=== PATIENT | female | born 1955 | race Caucasian/White ===

== ENCOUNTER → 2020-03-23 | Outpatient (CLI) | payer BC ==
[~2020-03-23] MED LIST: DAILY VITAMIN1 EAC3 PO; TYLENOL325 MG PO
[2020-03-23 15:35] LABS: BASOPHILS # (AUTO) 0.1 (0.0-0.1); BASOPHILS % 1.4 % (0.0-1.0); EOSINOPHILS # (AUTO) 0.2 (0.0-0.4); EOSINOPHILS % 2.6 % (0.0-6.0); HEMATOCRIT 42.2 % (34.2-44.1); HEMOGLOBIN 13.6 g/dL (12.0-16.0); LYMPHOCYTES # (AUTO) 2.1 (1.0-3.2); LYMPHOCYTES % 27.2 % (18.0-39.1); MEAN CORPUSCULAR HEMOGLOBIN 33.3 pg (28-32); MEAN CORPUSCULAR HGB CONC 32.2 g/dL (31-35); MEAN CORPUSCULAR VOLUME 103.4 fL (81-99); MONOCYTES # (AUTO) 0.5 (0.2-0.8); MONOCYTES % 6.6 % (4.4-11.3); NEUTROPHILS # (AUTO) 4.8 (2.1-6.9); NEUTROPHILS % 61.9 % (38.7-80.0); PLATELET COUNT 357 x10e3/uL (140-360); RED BLOOD COUNT 4.08 x10e6/uL (3.6-5.1); RED CELL DISTRIBUTION WIDTH 12.9 % (11.7-14.4)
[2020-03-23 16:04] LABS: ALBUMIN 3.8 g/dL (3.5-5.0); ALBUMIN/GLOBULIN RATIO 1.1 (0.8-2.0); ANION GAP 14.8 mmol/L (8-16); CALCIUM 9.6 mg/dL (8.4-10.2); CREATININE, SERUM 1.36 mg/dL (0.57-1.11); POTASSIUM 4.8 mmol/L (3.5-5.1)
== END ==
LOC: RAD 14:46
PROVIDERS: ATTEND Family Medicine
DX: R07.89 Other chest pain (principal); R06.02 Shortness of breath
CPT/HCPCS: 36415; 71046; 80053; 85025

== ENCOUNTER 2020-10-29 08:33 | Inpatient (IN) | payer BC ==
[~2020-10-29] VITALS: Ht 165.1 cm; Wt 74.8 kg
[2020-10-29] MEDS ORDERED: ONDANSETRON HCL INJ 2MG/ML 2ML 2 MG/ML VIAL IV STA (08:52)
[2020-10-29] MEDS ORDERED: MORPHINE SULFATE INJ 2 MG/ML SYR IV STA (08:52)
[2020-10-29] MEDS ORDERED: NITROGLYCERIN 2% OINT 1 GM PKT TOP ONE ×2 (09:00→11:30)
[2020-10-29 09:06] LABS: BASOPHILS # (AUTO) 0.1 (0.0-0.1); BASOPHILS % 1.3 % (0.0-1.0); EOSINOPHILS # (AUTO) 0.1 (0.0-0.4); EOSINOPHILS % 1.4 % (0.0-6.0); HEMATOCRIT 42.8 % (34.2-44.1); HEMOGLOBIN 13.5 g/dL (12.0-16.0); LYMPHOCYTES # (AUTO) 1.6 (1.0-3.2); LYMPHOCYTES % 15.8 % (18.0-39.1); MEAN CORPUSCULAR HEMOGLOBIN 32.7 pg (28-32); MEAN CORPUSCULAR HGB CONC 31.5 g/dL (31-35); MEAN CORPUSCULAR VOLUME 103.6 fL (81-99); MONOCYTES # (AUTO) 0.5 (0.2-0.8); MONOCYTES % 5.3 % (4.4-11.3); NEUTROPHILS # (AUTO) 7.7 (2.1-6.9); NEUTROPHILS % 75.9 % (38.7-80.0); PLATELET COUNT 387 x10e3/uL (140-360); RED BLOOD COUNT 4.13 x10e6/uL (3.6-5.1); RED CELL DISTRIBUTION WIDTH 13.9 % (11.7-14.4)
[2020-10-29 09:11] LABS: PARTIAL THROMBOPLASTIN TIME 30.9 seconds (23.8-35.5); PROTHROMBIN TIME 13.8 seconds (11.9-14.5)
[2020-10-29 09:20] LABS: ALBUMIN 3.8 g/dL (3.5-5.0); ANION GAP 17.5 mmol/L (8-16); CALCIUM 9.5 mg/dL (8.4-10.2); CREATININE, SERUM 1.62 mg/dL (0.57-1.11); MAGNESIUM 2.1 MG/DL (1.3-2.1); POTASSIUM 4.5 mmol/L (3.5-5.1)
[2020-10-29 09:26] LABS: CREATINE KINASE MB 4.9 ng/mL (0-5.0)
[2020-10-29] MEDS ORDERED: FUROSEMIDE INJ 10 MG/ML 4 ML VIAL IV ONE (10:15)
[2020-10-29] MEDS ORDERED: ONDANSETRON HCL INJ 2MG/ML 2ML 2 MG/ML VIAL IV PRN (10:15)
[2020-10-29] MEDS ORDERED: MORPHINE SULFATE INJ 2 MG/ML SYR IV PRN (10:15)
[2020-10-29] MEDS ORDERED: PROMETHAZINE HCL (IM) 25 MG/ML VIAL IM PRN (11:00)
[2020-10-29] MEDS ORDERED: HYDRALAZINE HCL 20 MG/ML VIAL IV PRN (11:00)
[2020-10-29] MEDS ORDERED: ASPIRIN 81 MG CHEW TAB PO ONE (11:00)
[2020-10-29] MEDS ORDERED: METOPROLOL SUCCINATE 50 MG TAB XL PO ONE (11:00)
[2020-10-29] MEDS: VALSARTAN 160 MG TAB PO SCH (11:30)
[2020-10-29] MEDS ORDERED: SPIRONOLACTONE 25 MG TAB PO ONE (11:30)
[2020-10-29] MEDS: NITROGLYCERIN 2% OINT 1 GM PKT TOP SCH ×2 (12:00→17:33)
[2020-10-29] MEDS: FAMOTIDINE 20 MG TAB PO SCH ×2 (12:18→22:27)
[2020-10-29] MEDS: COLCHICINE 0.6 MG TAB PO SCH ×2 (12:18→17:32)
[2020-10-29 14:28] VITALS: BP 153/97
[2020-10-29 15:36] VITALS: BP 153/97
[2020-10-29] MEDS ORDERED: ENTRESTO 49 MG1 EACH PO (16:40)
[2020-10-29 16:48] VITALS: BP 148/96
[2020-10-29 16:54] LABS: CREATINE KINASE MB 4.4 ng/mL (0-5.0)
[2020-10-29 20:00] VITALS: BP 121/91
[2020-10-29] MEDS ORDERED: FAMOTIDINE 20 MG/2 ML VIAL IV SCH (21:00)
[2020-10-30] VITALS (9 sets, daily range): BP systolic 145–169; BP diastolic 74–118
[2020-10-30] MEDS: NITROGLYCERIN 2% OINT 1 GM PKT TOP SCH ×5 (00:39→23:56)
[2020-10-30 01:57] LABS: CREATINE KINASE MB 3.6 ng/mL (0-5.0)
[2020-10-30 02:16] LABS: ANION GAP 17.2 mmol/L (8-16); CALCIUM 8.6 mg/dL (8.4-10.2); CREATININE, SERUM 1.7 mg/dL (0.57-1.11); POTASSIUM 4.2 mmol/L (3.5-5.1)
[2020-10-30 04:55] LABS: BASOPHILS # (AUTO) 0.1 (0.0-0.1); BASOPHILS % 1.3 % (0.0-1.0); EOSINOPHILS # (AUTO) 0.2 (0.0-0.4); EOSINOPHILS % 2.6 % (0.0-6.0); HEMATOCRIT 34.9 % (34.2-44.1); HEMOGLOBIN 11.3 g/dL (12.0-16.0); LYMPHOCYTES # (AUTO) 1.9 (1.0-3.2); MEAN CORPUSCULAR HEMOGLOBIN 33.1 pg (28-32); MEAN CORPUSCULAR HGB CONC 32.4 g/dL (31-35); MEAN CORPUSCULAR VOLUME 102.3 fL (81-99); MONOCYTES # (AUTO) 0.7 (0.2-0.8); MONOCYTES % 7.7 % (4.4-11.3); NEUTROPHILS # (AUTO) 5.5 (2.1-6.9); NEUTROPHILS % 64.9 % (38.7-80.0); PLATELET COUNT 314 x10e3/uL (140-360); RED BLOOD COUNT 3.41 x10e6/uL (3.6-5.1); RED CELL DISTRIBUTION WIDTH 13.7 % (11.7-14.4)
[2020-10-30 05:24] LABS: ALBUMIN 3.1 g/dL (3.5-5.0); ALBUMIN/GLOBULIN RATIO 1.1 (0.8-2.0); CALCIUM 8.5 mg/dL (8.4-10.2); CHOL/HDL RATIO 4.9 (3.0-3.6); CREATININE, SERUM 1.63 mg/dL (0.57-1.11)
[2020-10-30 05:57] LABS: CREATINE KINASE MB 3.2 ng/mL (0-5.0)
[2020-10-30] MEDS: ASPIRIN 81 MG ENTERIC COATED PO SCH (09:59)
[2020-10-30] MEDS: VALSARTAN 160 MG TAB PO SCH (09:59)
[2020-10-30] MEDS: METOPROLOL SUCCINATE 50 MG TAB XL PO SCH (09:59)
[2020-10-30] MEDS: SPIRONOLACTONE 25 MG TAB PO SCH (09:59)
[2020-10-30] MEDS: COLCHICINE 0.6 MG TAB PO SCH ×2 (09:59→17:00)
[2020-10-30] MEDS: FAMOTIDINE 20 MG TAB PO SCH ×2 (11:00→23:56)
[2020-10-31] VITALS (7 sets, daily range): BP systolic 125–177; BP diastolic 55–113
[2020-10-31] MEDS: NITROGLYCERIN 2% OINT 1 GM PKT TOP SCH ×3 (05:57→17:58)
[2020-10-31] MEDS: COLCHICINE 0.6 MG TAB PO SCH ×2 (08:38→17:00)
[2020-10-31] MEDS: SPIRONOLACTONE 25 MG TAB PO SCH (08:38)
[2020-10-31] MEDS: ASPIRIN 81 MG ENTERIC COATED PO SCH (08:38)
[2020-10-31] MEDS: VALSARTAN 160 MG TAB PO SCH (08:40)
[2020-10-31] MEDS: METOPROLOL SUCCINATE 50 MG TAB XL PO SCH ×2 (08:40→18:00)
[2020-10-31] MEDS: FAMOTIDINE 20 MG TAB PO SCH (11:00)
[2020-10-31] MEDS: SACUBITRIL/VALSARTAN 1 EACH TABLET PO SCH (17:30)
[2020-10-31] MEDS: FUROSEMIDE INJ 10 MG/ML 4 ML VIAL IV SCH (21:00)
[2020-11-01] VITALS (10 sets, daily range): BP systolic 152–171; BP diastolic 93–104
[2020-11-01] MEDS: FAMOTIDINE 20 MG TAB PO SCH ×3 (00:25→23:00)
[2020-11-01] MEDS: NITROGLYCERIN 2% OINT 1 GM PKT TOP SCH ×4 (00:25→17:18)
[2020-11-01] MEDS: ASPIRIN 81 MG ENTERIC COATED PO SCH (08:27)
[2020-11-01] MEDS: FUROSEMIDE INJ 10 MG/ML 4 ML VIAL IV SCH ×2 (08:27→22:30)
[2020-11-01] MEDS: SPIRONOLACTONE 25 MG TAB PO SCH (08:27)
[2020-11-01] MEDS: COLCHICINE 0.6 MG TAB PO SCH ×2 (08:28→18:08)
[2020-11-01] MEDS: SACUBITRIL/VALSARTAN 1 EACH TABLET PO SCH ×2 (08:28→18:08)
[2020-11-01] MEDS: METOPROLOL SUCCINATE 50 MG TAB XL PO SCH (08:28)
[2020-11-01] MEDS ORDERED: MIDAZOLAM HCL 2 MG/2 ML VIAL ONE (14:20)
[2020-11-01] MEDS ORDERED: SODIUM CHLORIDE 0.9% 500ML 500 ML ONE (14:21)
[2020-11-01] MEDS ORDERED: LIDOCAINE HCL 2% LOCAL 20 ML VIAL ONE (14:21)
[2020-11-01] MEDS ORDERED: IOPAMIDOL 370 MG/ML 200 ML INFUS..BTL INJ ONE (14:21)
[2020-11-01] MEDS ORDERED: FENTANYL CITRATE/PF 100MCG/2 ML INJ ONE (14:21)
[2020-11-01] MEDS ORDERED: GENTAMICIN SULFATE 40 MG/ML 2 ML VIAL ONE (14:21)
[2020-11-01] MEDS ORDERED: SODIUM CHLORIDE 0.9% 1000ML 2,000 ML ONE (14:22)
[2020-11-01] MEDS ORDERED: SODIUM CHLORIDE 0.9% 250ML 250 ML ONE (15:21)
[2020-11-01] MEDS ORDERED: Vancomycin IV 1 GM VIAL ONE (15:21)
[2020-11-01] MEDS ORDERED: CEFAZOLIN SOD 2 GM/NS 50ML 50 ML IV ONE (15:21)
[2020-11-01] MEDS: MORPHINE SULFATE INJ 2 MG/ML SYR IV PRN (21:20)
[2020-11-01] MEDS: ONDANSETRON HCL INJ 2MG/ML 2ML 2 MG/ML VIAL IV PRN (21:20)
[2020-11-02] VITALS (10 sets, daily range): BP systolic 127–151; BP diastolic 62–98
[2020-11-02] MEDS: NITROGLYCERIN 2% OINT 1 GM PKT TOP SCH ×4 (04:49→17:14)
[2020-11-02] MEDS: FUROSEMIDE INJ 10 MG/ML 4 ML VIAL IV SCH ×2 (08:15→21:29)
[2020-11-02] MEDS: COLCHICINE 0.6 MG TAB PO SCH ×2 (08:16→17:14)
[2020-11-02] MEDS: ASPIRIN 81 MG ENTERIC COATED PO SCH (08:16)
[2020-11-02] MEDS: SACUBITRIL/VALSARTAN 1 EACH TABLET PO SCH ×2 (08:16→17:14)
[2020-11-02] MEDS: METOPROLOL SUCCINATE 50 MG TAB XL PO SCH (08:17)
[2020-11-02] MEDS: SPIRONOLACTONE 25 MG TAB PO SCH (08:17)
[2020-11-02] MEDS: FAMOTIDINE 20 MG TAB PO SCH ×2 (11:17→23:30)
[2020-11-02] MEDS: ONDANSETRON HCL INJ 2MG/ML 2ML 2 MG/ML VIAL IV PRN (21:29)
[2020-11-02] MEDS: MORPHINE SULFATE INJ 2 MG/ML SYR IV PRN (21:29)
[2020-11-03] VITALS: BP 144/95
[2020-11-03 04:00] VITALS: BP 151/84
[2020-11-03] MEDS: NITROGLYCERIN 2% OINT 1 GM PKT TOP SCH ×3 (05:47→11:20)
[2020-11-03 08:10] VITALS: BP 132/85
[2020-11-03] MEDS: FUROSEMIDE INJ 10 MG/ML 4 ML VIAL IV SCH (08:25)
[2020-11-03] MEDS: ASPIRIN 81 MG ENTERIC COATED PO SCH (08:25)
[2020-11-03] MEDS: COLCHICINE 0.6 MG TAB PO SCH (08:25)
[2020-11-03] MEDS: SPIRONOLACTONE 25 MG TAB PO SCH (08:25)
[2020-11-03] MEDS: METOPROLOL SUCCINATE 50 MG TAB XL PO SCH (08:26)
[2020-11-03] MEDS: SACUBITRIL/VALSARTAN 1 EACH TABLET PO SCH (08:26)
[2020-11-03 10:30] VITALS: BP 132/85
[2020-11-03 11:43] VITALS: BP 145/86
== END 2020-11-03 12:44 | disposition home or self-care (01) | DRG 227 ==
LOC: ER 09:05 → ERHOLD 10:09 → MED/SURG2 13:59
PROVIDERS: ADMIT Internal Medicine Interventional Cardiology; ATTEND Internal Medicine Interventional Cardiology
PROC: 0JH608Z Insertion of Defibrillator Generator into Chest Subcutaneous Tissue and Fascia, Open Approach (ICD-10-PCS; principal; 2020-11-01)
PROC: 02HK3KZ Insertion of Defibrillator Lead into Right Ventricle, Percutaneous Approach (ICD-10-PCS; 2020-11-01)
DX: I11.0 Hypertensive heart disease with heart failure (principal); I16.1 Hypertensive emergency; I50.43 Acute on chronic combined systolic (congestive) and diastolic (congestive) heart failure; E78.5 Hyperlipidemia, unspecified; Z95.5 Presence of coronary angioplasty implant and graft; Z91.120 Patient's intentional underdosing of medication regimen due to financial hardship; Z85.3 Personal history of malignant neoplasm of breast
CPT/HCPCS: 33249; 36415; 71045; 80048; 80053; 80061; 82550; 82553; 83735; 83880; 84484; 85025; 85610; 85730; 93005; 93306; 99152; 99153; 99251; 99284; C1721; C1777; J0360; J0690; J1580; J1940; J2001; J2250; J2270; J2405; J3010; J3370; J7030; J7040; J7050; Q9967

== ENCOUNTER 2020-11-25 08:47 | Emergency (ER) | payer BC ==
[~2020-11-25] VITALS: Ht 165.1 cm; Wt 74.8 kg
[~2020-11-25 08:47] MED LIST changes: +ENTRESTO 49 MG1 EACH PO
[2020-11-25] MEDS ORDERED: ONDANSETRON HCL INJ 2MG/ML 2ML 2 MG/ML VIAL IV STA (09:06)
[2020-11-25 09:16] LABS: BASOPHILS # (AUTO) 0.1 (0.0-0.1); BASOPHILS % 1.6 % (0.0-1.0); EOSINOPHILS # (AUTO) 0.4 (0.0-0.4); EOSINOPHILS % 4.8 % (0.0-6.0); HEMATOCRIT 41.9 % (34.2-44.1); HEMOGLOBIN 13.1 g/dL (12.0-16.0); LYMPHOCYTES # (AUTO) 1.8 (1.0-3.2); LYMPHOCYTES % 21.1 % (18.0-39.1); MEAN CORPUSCULAR HEMOGLOBIN 32.2 pg (28-32); MEAN CORPUSCULAR HGB CONC 31.3 g/dL (31-35); MEAN CORPUSCULAR VOLUME 102.9 fL (81-99); MONOCYTES # (AUTO) 0.5 (0.2-0.8); NEUTROPHILS # (AUTO) 5.5 (2.1-6.9); PLATELET COUNT 362 x10e3/uL (140-360); RED BLOOD COUNT 4.07 x10e6/uL (3.6-5.1); RED CELL DISTRIBUTION WIDTH 13.8 % (11.7-14.4)
[2020-11-25 09:25] LABS: INR 1.13; PROTHROMBIN TIME 14.7 seconds (11.9-14.5)
[2020-11-25] MEDS ORDERED: HYDROCODONE/APAP 7.5MG-325MG 1 EA TAB PO ONE (09:30)
[2020-11-25] MEDS ORDERED: NITROGLYCERIN 2% OINT 1 GM PKT TOP ONE (09:30)
[2020-11-25 09:34] LABS: ALBUMIN 3.3 g/dL (3.5-5.0); ALBUMIN/GLOBULIN RATIO 0.8 (0.8-2.0); ANION GAP 18.3 mmol/L (8-16); CALCIUM 9.4 mg/dL (8.4-10.2); CREATININE, SERUM 1.52 mg/dL (0.57-1.11); MAGNESIUM 1.9 MG/DL (1.3-2.1); POTASSIUM 4.3 mmol/L (3.5-5.1)
[2020-11-25 09:41] LABS: CREATINE KINASE MB 6.2 ng/mL (0-5.0)
[2020-11-25 10:09] LABS: CLARITY,URINE CLEAR (CLEAR); COLOR,URINE YELLOW (YELLOW)
[2020-11-25 10:10] LABS: KETONES,URINE NEGATIVE (NEGATIVE); LEUKOCYTE ESTERASE ,URINE NEGATIVE (NEGATIVE); NITRITE,URINE NEGATIVE (NEGATIVE); PROTEIN,URINE DIPSTICK >=300 (NEGATIVE)
[2020-11-25 10:11] LABS: URINE UROBILINOGEN 0.2 mg/dL (0.2 - 1)
[2020-11-25 10:32] LABS: RBC,URINE 0-5 /HPF (0-5)
[2020-11-25] MEDS ORDERED: SACUBITRIL/VALSARTAN 1 EACH TABLET PO STA (10:34)
[2020-11-25 10:36] LABS: EPITHELIAL CELLS,URINE RARE /LPF
[2020-11-25] MEDS ORDERED: SACUBITRIL/VALSARTAN 1 EACH TABLET PO ONE (11:00)
[2020-11-25] MEDS ORDERED: FUROSEMIDE INJ 10 MG/ML 4 ML VIAL IV ONE (13:15)
[2020-11-25 14:44] LABS: CREATINE KINASE MB 5.8 ng/mL (0-5.0)
== END 2020-11-25 16:10 | disposition home or self-care (01) ==
LOC: ER 09:03
DX: R55 Syncope and collapse (principal); R06.00 Dyspnea, unspecified; R07.9 Chest pain, unspecified; I50.9 Heart failure, unspecified; R73.9 Hyperglycemia, unspecified; R05 Cough; I10 Essential (primary) hypertension; E78.5 Hyperlipidemia, unspecified; Z20.822 Contact with and (suspected) exposure to COVID-19; Z85.3 Personal history of malignant neoplasm of breast; Z85.43 Personal history of malignant neoplasm of ovary; Z79.899 Other long term (current) drug therapy
CPT/HCPCS: 36415; 70450; 71045; 72125; 80053; 81001; 82550; 82553; 83735; 83880; 84484; 85025; 85610; 85730; 93005; 93306; 99284; C9113; J1940; J2405; U0002

== ENCOUNTER 2020-11-30 04:43 | Inpatient (IN) | payer BC, MEDICARE ==
[~2020-11-30] VITALS: Ht 165.1 cm; Wt 74.8 kg
[2020-11-30] MEDS ORDERED: NITROGLYCERIN/D5W 200 MCG/ML 250 ML IV STA (05:11)
[2020-11-30] MEDS ORDERED: ASPIRIN 81 MG CHEW TAB PO ONE (05:15)
[2020-11-30 05:37] LABS: BASOPHILS # (AUTO) 0.1 (0.0-0.1); BASOPHILS % 1.4 % (0.0-1.0); EOSINOPHILS # (AUTO) 0.2 (0.0-0.4); EOSINOPHILS % 2.6 % (0.0-6.0); HEMATOCRIT 41.9 % (34.2-44.1); HEMOGLOBIN 13.2 g/dL (12.0-16.0); LYMPHOCYTES # (AUTO) 1.8 (1.0-3.2); LYMPHOCYTES % 20.6 % (18.0-39.1); MEAN CORPUSCULAR HEMOGLOBIN 32.4 pg (28-32); MEAN CORPUSCULAR HGB CONC 31.5 g/dL (31-35); MEAN CORPUSCULAR VOLUME 102.9 fL (81-99); MONOCYTES # (AUTO) 0.6 (0.2-0.8); MONOCYTES % 7.1 % (4.4-11.3); PLATELET COUNT 420 x10e3/uL (140-360); RED BLOOD COUNT 4.07 x10e6/uL (3.6-5.1); RED CELL DISTRIBUTION WIDTH 14.3 % (11.7-14.4)
[2020-11-30] MEDS ORDERED: ONDANSETRON HCL INJ 2MG/ML 2ML 2 MG/ML VIAL IV STA (05:45)
[2020-11-30 06:02] LABS: ALBUMIN 3.3 g/dL (3.5-5.0); ALBUMIN/GLOBULIN RATIO 0.8 (0.8-2.0); ANION GAP 20.3 mmol/L (8-16); CALCIUM 9.5 mg/dL (8.4-10.2); CREATININE, SERUM 1.47 mg/dL (0.57-1.11); POTASSIUM 4.3 mmol/L (3.5-5.1)
[2020-11-30 06:15] LABS: CREATINE KINASE MB 5.9 ng/mL (0-5.0); THYROID STIMULATING HORMONE 1.69 uIU/mL (0.350-4.940)
[2020-11-30] MEDS ORDERED: FUROSEMIDE INJ 10 MG/ML 4 ML VIAL IV ONE (06:15)
[2020-11-30 06:23] LABS: INR 1.05; PROTHROMBIN TIME 13.9 seconds (11.9-14.5)
[2020-11-30 06:24] LABS: PARTIAL THROMBOPLASTIN TIME 30.4 seconds (23.8-35.5)
[2020-11-30 09:57] VITALS: BP 178/98
[2020-11-30] MEDS ORDERED: SACUBITRIL/VALSARTAN 1 EACH TABLET PO SCH (10:00)
[2020-11-30] MEDS ORDERED: FUROSEMIDE 40 MG TAB PO SCH (10:00)
[2020-11-30] MEDS ORDERED: CARVEDILOL 12.5 MG TAB PO SCH (10:00)
== END 2020-11-30 10:00 | disposition left against medical advice (07) | DRG 291 ==
LOC: ER 05:11 → ERHOLD 06:46
DX: I13.0 Hypertensive heart and chronic kidney disease with heart failure and stage 1 through stage 4 chronic kidney disease, or unspecified chronic kidney disease (principal); I50.23 Acute on chronic systolic (congestive) heart failure; I16.0 Hypertensive urgency; N18.9 Chronic kidney disease, unspecified; Z95.810 Presence of automatic (implantable) cardiac defibrillator; I42.8 Other cardiomyopathies; Z20.822 Contact with and (suspected) exposure to COVID-19; Z85.9 Personal history of malignant neoplasm, unspecified
CPT/HCPCS: 36415; 71045; 80048; 80053; 82550; 82553; 83880; 84443; 84484; 85025; 85610; 85730; 99284; J1940; U0002

== ENCOUNTER 2020-12-06 18:16 | Emergency (ER) | payer BC, MEDICARE ==
[~2020-12-06] VITALS: Ht 165.1 cm; Wt 74.8 kg
[2020-12-06] MEDS ORDERED: HYDRALAZINE HCL 20 MG/ML VIAL IV STA (19:03)
[2020-12-11] MEDS ORDERED: ASPIRIN81 MG PO (08:50)
== END 2020-12-06 21:30 | disposition home or self-care (01) ==
LOC: ER 20:35
DX: R07.9 Chest pain, unspecified (principal); R10.84 Generalized abdominal pain; R11.2 Nausea with vomiting, unspecified; R19.7 Diarrhea, unspecified; I16.1 Hypertensive emergency; I10 Essential (primary) hypertension; E78.5 Hyperlipidemia, unspecified; Z85.3 Personal history of malignant neoplasm of breast; Z85.43 Personal history of malignant neoplasm of ovary; Z79.899 Other long term (current) drug therapy; Z95.810 Presence of automatic (implantable) cardiac defibrillator
CPT/HCPCS: 99282

== ENCOUNTER 2020-12-08 15:16 | Emergency (ER) | payer BC, MEDICARE ==
[~2020-12-08] VITALS: Ht 165.1 cm; Wt 74.8 kg
[2020-12-08 15:57] LABS: BASOPHILS # (AUTO) 0.1 (0.0-0.1); BASOPHILS % 1.1 % (0.0-1.0); EOSINOPHILS # (AUTO) 0.1 (0.0-0.4); EOSINOPHILS % 0.6 % (0.0-6.0); HEMATOCRIT 43.3 % (34.2-44.1); HEMOGLOBIN 13.6 g/dL (12.0-16.0); LYMPHOCYTES # (AUTO) 1.6 (1.0-3.2); LYMPHOCYTES % 17.3 % (18.0-39.1); MEAN CORPUSCULAR HEMOGLOBIN 32.8 pg (28-32); MEAN CORPUSCULAR HGB CONC 31.4 g/dL (31-35); MEAN CORPUSCULAR VOLUME 104.3 fL (81-99); MONOCYTES # (AUTO) 0.7 (0.2-0.8); MONOCYTES % 7.7 % (4.4-11.3); NEUTROPHILS # (AUTO) 6.9 (2.1-6.9); NEUTROPHILS % 73.1 % (38.7-80.0); PLATELET COUNT 311 x10e3/uL (140-360); RED BLOOD COUNT 4.15 x10e6/uL (3.6-5.1); RED CELL DISTRIBUTION WIDTH 15.9 % (11.7-14.4)
[2020-12-08 16:07] LABS: INR 1.18; PROTHROMBIN TIME 15.2 seconds (11.9-14.5)
[2020-12-08 16:15] LABS: ALBUMIN 3.8 g/dL (3.5-5.0); ANION GAP 22.4 mmol/L (8-16); CALCIUM 9.7 mg/dL (8.4-10.2); CREATININE, SERUM 1.6 mg/dL (0.57-1.11); POTASSIUM 4.4 mmol/L (3.5-5.1)
[2020-12-11] MEDS ORDERED: ASPIRIN81 MG PO (08:50)
[2020-12-14] MEDS ORDERED: PANTOPRAZOLE SO40 MG PO (10:11)
== END 2020-12-08 17:13 | disposition home or self-care (01) ==
LOC: ER 15:21
DX: K62.5 Hemorrhage of anus and rectum (principal); I10 Essential (primary) hypertension; E78.5 Hyperlipidemia, unspecified; I50.9 Heart failure, unspecified; Z85.3 Personal history of malignant neoplasm of breast; Z85.43 Personal history of malignant neoplasm of ovary
CPT/HCPCS: 36415; 71045; 80053; 85025; 85610; 99284

== ENCOUNTER 2022-05-30 11:31 | Emergency (ER) | payer BC ==
[~2022-05-30] VITALS: Ht 162.6 cm; Wt 68.0 kg
[~2022-05-30 11:31] MED LIST changes: +ASPIRIN81 MG PO; +PANTOPRAZOLE SO40 MG PO
[2022-05-30] MEDS ORDERED: SODIUM CHLORIDE 0.9% 1000ML 1,000 ML IV STA (11:54)
[2022-05-30] MEDS ORDERED: ONDANSETRON HCL INJ 2MG/ML 2ML 2 MG/ML VIAL IV STA (11:54)
[2022-05-30] MEDS ORDERED: Morphine 4mg INJECTION 4 MG/ML INJ IV STA (11:54)
[2022-05-30 12:01] LABS: BASOPHILS # (AUTO) 0.1 (0.0-0.1); BASOPHILS % 0.8 % (0.0-1.0); EOSINOPHILS # (AUTO) 0.1 (0.0-0.4); HEMATOCRIT 38.7 % (34.2-44.1); HEMOGLOBIN 12.3 g/dL (12.0-16.0); LYMPHOCYTES # (AUTO) 1.3 (1.0-3.2); LYMPHOCYTES % 14.3 % (18.0-39.1); MEAN CORPUSCULAR HEMOGLOBIN 33.8 pg (28-32); MEAN CORPUSCULAR HGB CONC 31.8 g/dL (31-35); MEAN CORPUSCULAR VOLUME 106.3 fL (81-99); MONOCYTES # (AUTO) 0.6 (0.2-0.8); MONOCYTES % 7.1 % (4.4-11.3); NEUTROPHILS # (AUTO) 6.9 (2.1-6.9); NEUTROPHILS % 76.5 % (38.7-80.0); PLATELET COUNT 351 x10e3/uL (140-360); RED BLOOD COUNT 3.64 x10e6/uL (3.6-5.1); RED CELL DISTRIBUTION WIDTH 14.7 % (11.7-14.4)
[2022-05-30 12:21] LABS: INR 1.12; PROTHROMBIN TIME 14.6 seconds (11.9-14.5)
[2022-05-30 12:22] LABS: PARTIAL THROMBOPLASTIN TIME 24.3 seconds (23.8-35.5)
[2022-05-30 12:31] LABS: ALBUMIN 3.5 g/dL (3.5-5.0); ALBUMIN/GLOBULIN RATIO 0.9 (0.8-2.0); ANION GAP 18.7 mmol/L (8-16); CALCIUM 9.4 mg/dL (8.4-10.2); CREATININE, SERUM 1.88 mg/dL (0.57-1.11); POTASSIUM 5.7 mmol/L (3.5-5.1)
[2022-05-30 13:30] LABS: CLARITY,URINE CLOUDY (CLEAR); COLOR,URINE YELLOW (YELLOW); LEUKOCYTE ESTERASE ,URINE SMALL (NEGATIVE); NITRITE,URINE POSITIVE (NEGATIVE); PROTEIN,URINE DIPSTICK >=300 (NEGATIVE)
[2022-05-30 13:31] LABS: KETONES,URINE NEGATIVE (NEGATIVE); URINE UROBILINOGEN 0.2 mg/dL (0.2 - 1)
[2022-05-30 13:55] LABS: BACTERIA,URINE MODERATE /HPF; EPITHELIAL CELLS,URINE RARE /LPF; WBC,URINE (MAN) 21-50 /HPF (0-5)
[2022-05-30] MEDS ORDERED: PROMETHAZINE 12.5MG/ NACL 0.9% 12.5 MG/50 ML BAG IV ONE (15:30)
[2022-05-30 15:42] LABS: ANION GAP 14.8 mmol/L (8-16); CALCIUM 8.8 mg/dL (8.4-10.2); CREATININE, SERUM 1.67 mg/dL (0.57-1.11); POTASSIUM 3.8 mmol/L (3.5-5.1)
[2022-05-30] MEDS ORDERED: PROMETHAZINE HC25 M1 PO (16:04)
[2022-05-30] MEDS ORDERED: BENTYL10 MG/1 ML IV (16:04)
[2022-05-30] MEDS ORDERED: DICYCLOMINE HCL20 MG PO (16:15)
[2022-05-30 16:43] VITALS: BP 146/97
== END 2022-05-30 16:14 | disposition home or self-care (01) ==
LOC: ER 11:38
DX: R10.30 Lower abdominal pain, unspecified (principal); R73.9 Hyperglycemia, unspecified; N39.0 Urinary tract infection, site not specified; N20.0 Calculus of kidney; N28.9 Disorder of kidney and ureter, unspecified; R16.0 Hepatomegaly, not elsewhere classified; E86.0 Dehydration; J90 Pleural effusion, not elsewhere classified; I51.7 Cardiomegaly; I10 Essential (primary) hypertension; R94.31 Abnormal electrocardiogram [ECG] [EKG]; Z85.3 Personal history of malignant neoplasm of breast; Z85.43 Personal history of malignant neoplasm of ovary
CPT/HCPCS: 36415; 71046; 74176; 80048; 80053; 81001; 82550; 82553; 83690; 84484; 85025; 85610; 85730; 87086; 87186; 93005; 99284; J0696; J2270; J2405; J2550; J7030

== ENCOUNTER 2024-07-13 10:43 | Inpatient (IN) | payer MEDICARE, OTHER ==
[~2024-07-13] VITALS: Ht 162.6 cm; Wt 77.1 kg
[2024-07-13] VITALS (8 sets, daily range): BP systolic 118–214; BP diastolic 60–199; PULSE 92–117; RESP 12–20; TEMP 98.2–101.1; O2SAT 95–100
[~2024-07-13 10:43] MED LIST changes: +BENTYL10 MG/1 ML IV; +DICYCLOMINE HCL20 MG PO; +PROMETHAZINE HC25 M1 PO
[2024-07-13] MEDS ORDERED: LASIX20 MG PO (11:15)
[2024-07-13] MEDS ORDERED: ENTRESTO 49 MG1 EACH (11:15)
[2024-07-13] MEDS ORDERED: FAMOTIDINE20 MG PO (11:15)
[2024-07-13] MEDS ORDERED: ASPIRIN325 MG PO (11:15)
[2024-07-13] MEDS ORDERED: NITROGLYCERIN0.4 MG SL (11:15)
[2024-07-13] MEDS ORDERED: METOPROLOL SUCC50 MG PO (11:15)
[2024-07-13 11:32] LABS: BASOPHILS # (AUTO) 0.1 (0.0-0.1); BASOPHILS % 0.9 % (0.0-1.0); EOSINOPHILS # (AUTO) 0.2 (0.0-0.4); EOSINOPHILS % 2.4 % (0.0-6.0); HEMATOCRIT 40.1 % (34.2-44.1); HEMOGLOBIN 13.2 g/dL (12.0-16.0); LYMPHOCYTES # (AUTO) 1.9 (1.0-3.2); LYMPHOCYTES % 22.8 % (18.0-39.1); MEAN CORPUSCULAR HGB CONC 32.9 g/dL (31-35); MEAN CORPUSCULAR VOLUME 100.3 fL (81-99); MONOCYTES # (AUTO) 0.6 (0.2-0.8); NEUTROPHILS # (AUTO) 5.6 (2.1-6.9); NEUTROPHILS % 66.5 % (38.7-80.0); PLATELET COUNT 351 x10e3/uL (140-360); WHITE BLOOD COUNT 8.43 x10e3/uL (4.8-10.8)
[2024-07-13] MEDS: ONDANSETRON HCL INJ 2MG/ML 2ML 2 MG/ML VIAL IV STA (11:39)
[2024-07-13] MEDS: HYDRALAZINE HCL 20 MG/ML VIAL IV STA (11:39)
[2024-07-13 11:52] LABS: INR 0.85; PROTHROMBIN TIME 12.2 seconds (11.9-14.5)
[2024-07-13 11:53] LABS: PARTIAL THROMBOPLASTIN TIME 29.3 seconds (23.8-35.5)
[2024-07-13 12:00] LABS: ALBUMIN 3.8 g/dL (3.5-5.0); BILIRUBIN,TOTAL 0.4 mg/dL (0.2-1.2); CALCIUM 9.6 mg/dL (8.4-10.2); CREATININE, SERUM 1.62 mg/dL (0.57-1.11); MAGNESIUM 1.9 MG/DL (1.3-2.1); TOTAL PROTEIN 7.6 g/dL (6.5-8.1)
[2024-07-13 12:06] LABS: TROPONIN I 0.025 ng/mL (0-0.300)
[2024-07-13] MEDS: ACETAMINOPHEN 1000 MG/100 ML IV STA (12:17)
[2024-07-13 12:21] LABS: BACTERIA,URINE MODERATE /HPF; BILIRUBIN,URINE NEGATIVE (NEGATIVE); CLARITY,URINE CLEAR (CLEAR); COLOR,URINE YELLOW (YELLOW); EPITHELIAL CELLS,URINE FEW /LPF; GLUCOSE, URINE NEGATIVE (NEGATIVE); KETONES,URINE NEGATIVE (NEGATIVE); LEUKOCYTE ESTERASE ,URINE SMALL (NEGATIVE); NITRITE,URINE NEGATIVE (NEGATIVE); PH,URINE 6.5 (5 - 7); PROTEIN,URINE DIPSTICK 2+ (NEGATIVE); TRANSITIONAL EPI CELLS,URINE FEW; URINE UROBILINOGEN 0.2 mg/dL (0.2 - 1); WBC,URINE (MAN) >50 /HPF (0-5)
[2024-07-13] MEDS: CEFTRIAXONE 2 GM in SODIUM CHLORIDE 0.9% 100 ML IV ONE (13:30)
[2024-07-13] MEDS: LORAZEPAM INJ 2 MG/ML VIAL IV ONE (13:41)
[2024-07-13] MEDS ORDERED: Morphine 2mg Syringe 2 MG/ML SYR IV PRN (14:00)
[2024-07-13] MEDS: OLANZAPINE 5 MG TAB PO ONE (16:52)
[2024-07-13] MEDS: ONDANSETRON HCL INJ 2MG/ML 2ML 2 MG/ML VIAL IV PRN (16:52)
[2024-07-13] MEDS: SACUBITRIL49MG/VALSARTAN51MG 1 EACH TABLET PO SCH (17:21)
[2024-07-13] MEDS: Vancomycin IV 1 GM in SODIUM CHLORIDE 0.9% 250ML 250 ML IV ONE (17:22)
[2024-07-13] MEDS: SODIUM CHLORIDE 0.9% 250ML 250 ML ONE (17:24)
[2024-07-13] MEDS: HALOPERIDOL LACTATE 5 MG/ML VIAL IM ONE (18:26)
[2024-07-13] MEDS: HYDRALAZINE HCL 20 MG/ML VIAL IV PRN (21:19)
[2024-07-13] MEDS: ACETAMINOPHEN 325 MG TAB PO PRN (21:20)
[2024-07-13] MEDS ORDERED: LORAZEPAM 0.5 MG TAB PO PRN (21:45)
[2024-07-13] MEDS ORDERED: POLYETHYLENE GLYCOL 3350 17 GM PACK PO PRN (22:45)
[2024-07-13] MEDS: ZIPRASIDONE 20 MG VIAL IM ONE (22:56)
[2024-07-13] MEDS: SODIUM CHLORIDE 0.9% 1000ML 1,000 ML ONE (22:56)
[2024-07-14] MEDS: SODIUM CHLORIDE 0.9% 1000ML 1,000 ML IV ONE (00:30)
[2024-07-14 01:14] VITALS: BP 144/129; PULSE 112; RESP 20; TEMP 100; O2SAT 100
[2024-07-14] MEDS: ACETAMINOPHEN 1000 MG/100 ML IV STA (02:11)
[2024-07-14 05:38] LABS: BASOPHILS % 0.4 % (0.0-1.0); HEMATOCRIT 42.4 % (34.2-44.1); HEMOGLOBIN 13.8 g/dL (12.0-16.0); LYMPHOCYTES % 9.7 % (18.0-39.1); MEAN CORPUSCULAR HEMOGLOBIN 32.6 pg (28-32); MEAN CORPUSCULAR HGB CONC 32.5 g/dL (31-35); MEAN CORPUSCULAR VOLUME 100.2 fL (81-99); MONOCYTES # (AUTO) 0.8 (0.2-0.8); MONOCYTES % 7.2 % (4.4-11.3); NEUTROPHILS # (AUTO) 8.8 (2.1-6.9); NEUTROPHILS % 82.3 % (38.7-80.0); PLATELET COUNT 364 x10e3/uL (140-360); RED BLOOD COUNT 4.23 x10e6/uL (3.6-5.1); RED CELL DISTRIBUTION WIDTH 13.1 % (11.7-14.4); WHITE BLOOD COUNT 10.64 x10e3/uL (4.8-10.8)
[2024-07-14 05:57] VITALS: BP 110/74; PULSE 101; RESP 18; TEMP 99.3; O2SAT 99
[2024-07-14 06:08] LABS: MAGNESIUM 1.8 MG/DL (1.3-2.1)
[2024-07-14 06:29] LABS: THYROID STIMULATING HORMONE 0.524 uIU/mL (0.350-4.940)
[2024-07-14 06:30] LABS: ALBUMIN 3.5 g/dL (3.5-5.0); ALBUMIN/GLOBULIN RATIO 0.9 (0.8-2.0); ANION GAP 19.4 mmol/L (8-16); BILIRUBIN,TOTAL 0.5 mg/dL (0.2-1.2); CALCIUM 9.4 mg/dL (8.4-10.2); CHOL/HDL RATIO 4.9 (3.0-3.6); CREATININE, SERUM 1.84 mg/dL (0.57-1.11); TOTAL PROTEIN 7.4 g/dL (6.5-8.1)
[2024-07-14 06:32] LABS: POTASSIUM 3.4 mmol/L (3.5-5.1)
[2024-07-14 06:56] LABS: TROPONIN I 0.099 ng/mL (0-0.300)
[2024-07-14 09:00] VITALS: BP 129/67; PULSE 97; RESP 16; TEMP 98.4; O2SAT 95
[2024-07-14] MEDS: DOCUSATE SODIUM 100 MG CAP PO SCH (09:11)
[2024-07-14] MEDS: HYDROCODONE/APAP 5MG-325MG TAB PO PRN (09:11)
[2024-07-14 10:00] VITALS: BP 129/67; PULSE 97; RESP 16; TEMP 98.4; O2SAT 95
[2024-07-14 13:14] LABS: TROPONIN I 0.149 ng/mL (0-0.300)
[2024-07-14 16:00] VITALS: BP 142/62; PULSE 75; RESP 18; TEMP 98.2; O2SAT 94
[2024-07-14 20:00] VITALS: BP 146/67; PULSE 82; RESP 16; TEMP 98.6; O2SAT 95
[2024-07-15] VITALS: BP 149/77; PULSE 83; RESP 16; TEMP 98.1; O2SAT 97
[2024-07-15 04:00] VITALS: BP 137/91; PULSE 72; RESP 16; TEMP 97.9; O2SAT 97
[2024-07-15 05:00] LABS: BASOPHILS # (AUTO) 0.1 (0.0-0.1); BASOPHILS % 1.2 % (0.0-1.0); EOSINOPHILS # (AUTO) 0.1 (0.0-0.4); EOSINOPHILS % 1.1 % (0.0-6.0); HEMATOCRIT 39.6 % (34.2-44.1); HEMOGLOBIN 12.9 g/dL (12.0-16.0); LYMPHOCYTES # (AUTO) 1.7 (1.0-3.2); LYMPHOCYTES % 22.6 % (18.0-39.1); MEAN CORPUSCULAR HEMOGLOBIN 33.3 pg (28-32); MEAN CORPUSCULAR HGB CONC 32.6 g/dL (31-35); MEAN CORPUSCULAR VOLUME 102.3 fL (81-99); MONOCYTES # (AUTO) 0.7 (0.2-0.8); MONOCYTES % 9.6 % (4.4-11.3); NEUTROPHILS % 65.4 % (38.7-80.0); PLATELET COUNT 315 x10e3/uL (140-360); RED BLOOD COUNT 3.87 x10e6/uL (3.6-5.1); RED CELL DISTRIBUTION WIDTH 13.2 % (11.7-14.4); WHITE BLOOD COUNT 7.58 x10e3/uL (4.8-10.8)
[2024-07-15 05:52] LABS: ALBUMIN 3.2 g/dL (3.5-5.0); ALBUMIN/GLOBULIN RATIO 0.9 (0.8-2.0); ANION GAP 15.6 mmol/L (8-16); BILIRUBIN,TOTAL 0.6 mg/dL (0.2-1.2); CALCIUM 9.2 mg/dL (8.4-10.2); CREATININE, SERUM 1.81 mg/dL (0.57-1.11); POTASSIUM 3.6 mmol/L (3.5-5.1); TOTAL PROTEIN 6.7 g/dL (6.5-8.1)
[2024-07-15 06:10] LABS: RAPID PLASMA REAGIN Non Reactive (Non Reactive)
[2024-07-15 08:00] VITALS: BP 137/59; PULSE 70; RESP 17; TEMP 98.3; O2SAT 98
[2024-07-15 09:00] VITALS: BP 137/59; PULSE 70; RESP 17; TEMP 98.3; O2SAT 98
[2024-07-15 12:00] VITALS: BP 155/74; PULSE 79; RESP 18; TEMP 97.8; O2SAT 99
[2024-07-15] MEDS: SODIUM CHLORIDE 0.9% 250ML 250 ML ONE (14:04)
[2024-07-15 16:00] VITALS: BP 157/82; PULSE 79; RESP 18; TEMP 98.9; O2SAT 99
[2024-07-15] MEDS ORDERED: CIPRO250 MG PO (18:11)
[2024-07-15] MEDS ORDERED: ROSUVASTATIN CA20 MG PO (18:11)
[2024-07-15] MEDS ORDERED: CRESTOR 10MG PO SCH (21:00)
== END 2024-07-15 19:00 | disposition home or self-care (01) | DRG 689 ==
LOC: ER 10:49 → ERHOLD 14:04 → MED/SURG 14:58
PROVIDERS: ADMIT Internal Medicine; ATTEND Internal Medicine
DX: N39.0 Urinary tract infection, site not specified (principal); G93.41 Metabolic encephalopathy; I13.0 Hypertensive heart and chronic kidney disease with heart failure and stage 1 through stage 4 chronic kidney disease, or unspecified chronic kidney disease; I50.42 Chronic combined systolic (congestive) and diastolic (congestive) heart failure; I16.0 Hypertensive urgency; B96.20 Unspecified Escherichia coli [E. coli] as the cause of diseases classified elsewhere; N18.32 Chronic kidney disease, stage 3b; R00.0 Tachycardia, unspecified; R11.0 Nausea; R45.1 Restlessness and agitation; Z95.810 Presence of automatic (implantable) cardiac defibrillator; Z79.899 Other long term (current) drug therapy; Z85.3 Personal history of malignant neoplasm of breast; Z85.42 Personal history of malignant neoplasm of other parts of uterus; Z90.13 Acquired absence of bilateral breasts and nipples; Z90.710 Acquired absence of both cervix and uterus; Z92.21 Personal history of antineoplastic chemotherapy; Z92.3 Personal history of irradiation
CPT/HCPCS: 36415; 70450; 71045; 80053; 80061; 81001; 82140; 82550; 83690; 83735; 83880; 84443; 84484; 85025; 85610; 85730; 86592; 87086; 87186; 93005; 93306; 93880; 94799; 99284; J0360; J0696; J1630; J2060; J2270; J2405; J2543; J3486; J7030; J7050